=== PATIENT | female | born 1955 | race Caucasian/White ===

== ENCOUNTER 2016-11-18 11:54 | Observation (INO) | payer BC ==
[~2016-11-18] VITALS: Ht 160 cm; Wt 77.7 kg
[~2016-11-18 11:54] MED LIST: ASPCH81 PO; CLOP1TAB15 PO; METO50TA7 PO; PRAV20TA PO
[2016-11-18] MEDS ORDERED: RANITIDINE HCL 150 MG TAB PO STA (12:13)
[2016-11-18] MEDS ORDERED: SODIUM CHLORIDE 0.9% 1000ML 500 ML IV STA (12:13)
--- NOTE | 2016-11-18 12:17 | EMERGENCY ROOM VISIT NOTE ---
History Report prepared by Clyde: Linette Gabriel Under the Supervision of: Dr. Keegan De Luna M.D. First contact with patient: 12:08 Chief Complaint: CHEST PAIN Stated Complaint: CHEST PAINS Nursing Triage Summary: felt sick yesterday and did not eat much today and now has intermittant chest pain today c/o sob since chest pain started History of Present Illness The patient is a 61 year old female who presents to the Emergency Room with complaints of chest pain beginning yesterday. She states that she woke up feeling fine today and that she ate normally and went to work. About a half hour prior to arrival, she states that she felt a pain in her chest that she thought was heartburn, but it was not going away. She had just eaten some cheese as a snack. She reports that her pain did not radiate and rates it at a 6 /10. She also began to feel short of breath, but did not become diaphoretic. She reports that she has been exercising normally. The patient states that she had a heart attack 9 years ago and takes baby aspirin. She reports taking her baby aspirin today. Source of History: patient Onset: yesterday Position: chest Symptom Intensity: rated at a 6/10 Associated Symptoms: + headache, + SOB, No diaphoresis Review of Systems See HPI for pertinent positives & negatives. A total of 10 systems reviewed and were otherwise negative. Past Medical & Surgical Medical Problems: (1) Myocardial infarction Family History Cancer Social History Smoking Status: Never Smoker Marital Status: Current/Historical Medications Scheduled Aspirin (Aspirin Ec), 81 MG PO DAILY Metoprolol Succ (Toprol Xl) (Toprol-Xl), 50 MG PO BID Pravastatin (Pravachol ), 20 MG PO HS Allergies Coded Allergies: No Known Allergies (Verified Allergy, Unknown, 01/14/08) Physical Exam Vital Signs Date Time Temp Pulse Resp B/P (MAP) Pulse Ox O2 Delivery O2 Flow Rate FiO2 11/18/16 12:30 52 16 146/103 100 Room Air 11/18/16 12:06 62 11/18/16 12:03 100 Room Air 11/18/16 11:58 36.5 59 18 162/107 96 Physical Exam GENERAL: Patient is in no acute distress. HEENT: No acute trauma, normocephalic atraumatic, mucous membranes moist, no nasal congestion, no scleral icterus. NECK: No stridor, no adenopathy, no meningismus, trachea is midline. LUNGS: Clear to auscultation bilaterally, no wheeze, no rhonchi, breath sounds equal. HEART: Without murmurs gallops or rubs, regular rate and rhythm. ABDOMEN: Soft, nontender, bowel sounds positive, no hernias, no peritonitis. EXTREMITIES: No cyanosis or edema, full range of motion of all the joints without pain or difficulty, no signs for acute trauma. NEUROLOGIC: Oriented x 3, no acute motor or sensory deficits, no focal weakness. SKIN: No rash, no jaundice, no diaphoresis. Medical Decision & Procedures ER Provider Diagnostic Interpretation: X-ray results as stated below per interpretation by me and the radiologist: CHEST ONE VIEW PORTABLE HISTORY: Atypical CHEST PAIN COMPARISON: Chest 02/07/2008. FINDINGS: The lungs are clear. Cardiac silhouette is top normal in size. This remains unchanged. No pleural effusions. No pneumothorax. IMPRESSION: No significant change compared to the prior study. No acute process. Electronically signed by: Anton Man M.D. 11/18/2016 12:37 PM Dictated Date/Time: 11/18/2016 12:36 PM Laboratory Results 11/18/16 12:07 11/18/16 12:07 Test 11/18/16 12:07 11/18/16 12:19 Red Blood Count 4.94 M/uL (4.2-5.4) Mean Corpuscular Volume 89.9 fL (80-100) Mean Corpuscular Hemoglobin 30.6 pg (25-34) Mean Corpuscular Hemoglobin Concent 34.0 g/dl (32-36) RDW Standard Deviation 41.4 fL (36.4-46.3) RDW Coefficient of Variation 12.7 % (11.5-14.5) Mean Platelet Volume 11.6 fL (7.4-10.4) Prothrombin Time 10.4 SECONDS (9.0-12.0) Prothromb Time International Ratio 1.0 (0.9-1.1) Activated Partial Thromboplast Time 37.7 SECONDS (21.0-31.0) Partial Thromboplastin Ratio 1.5 Anion Gap 7.0 mmol/L (3-11) Est Creatinine Clear Calc Drug Dose 75.3 ml/min Estimated GFR () 95.0 Estimated GFR (Non- 81.9 BUN/Creatinine Ratio 16.4 (10-20) Calcium Level 9.7 mg/dl (8.5-10.1) Total Bilirubin 1.0 mg/dl (0.2-1) Aspartate Amino Transf (AST/SGOT) 20 U/L (15-37) Alanine Aminotransferase (ALT/SGPT) 31 U/L (12-78) Alkaline Phosphatase 81 U/L (45-117) Total Protein 7.8 gm/dl (6.4-8.2) Albumin 4.2 gm/dl (3.4-5.0) Globulin 3.6 gm/dl (2.5-4.0) Albumin/Globulin Ratio 1.2 (0.9-2) Lipase 166 U/L (73-393) Bedside Troponin I < 0.030 ng/ml (0-0.045) Laboratory results reviewed by me. Medications Administered Medications (Trade) Dose Ordered Sig/Alejandra Route Start Time Stop Time Status Last Admin Dose Admin Sodium Chloride 500 ml @ 999 mls/hr Q31M STAT IV 11/18/16 12:13 11/18/16 12:44 DC 11/18/16 12:30 999 MLS/HR Ranitidine HCl (zANTac TAB) 150 mg NOW STAT PO 11/18/16 12:13 11/18/16 12:15 DC 11/18/16 12:30 150 MG ECG Indication: chest pain Rate (beats per minute): 54 Rhythm: sinus bradycardia Findings: no acute ischemic change, no ectopy ED Course 1222: The patient was evaluated in room B11B. A complete history and physical exam was performed. 1213: Ordered Ranitidine HCl 150 mg PO, Sodium Chloride 500 ml @ 999 mls/hr IV. 1308: Discussed the patient's case. He believes that the patient should be brought in for chest pain. 1313: I updated the patient. Medical Decision The patient is a 61 year old female who presents to the ED with complaints of chest pain. Differential diagnoses considered include reflux, esophageal spasm , aortic dissection PE, CO, and angina. There is no leukocytosis or concerning anemia. No significant electrolyte abnormality, kidney failure or hepatitis. There is no pancreatitis. EKG shows sinus bradycardia, no acute ischemia. Cardiac enzyme testing times one is not consistent with acute cardiac injury. Chest film does not show pneumonia, pneumothorax or mediastinal widening. The patient received IV saline and oral Zantac. She had already taken her daily aspirin. She is currently pain-free. The patient presents with precordial chest pain and shortness of breath. She does have a cardiac history. I did speak with her sound tester, admission/ observation was felt warranted. I spoke to the patient and the lining caser. The on-call hospitalist was consulted. Medication Reconcilliation Current Medication List: was personally reviewed by me Blood Pressure Screening Patient's blood pressure: Elevated blood pressure Blood pressure disposition: Referred to PCP Consults Time Called: 1300 Consulting Physician: Dr. Frederick-Cardiology Returned Call: [phone] Discussed the patient's case. He believes that the patient should be brought in for chest pain. Impression Primary Impression: Precordial chest pain Scribe Attestation The scribe's documentation has been prepared under my direction and personally reviewed by me in its entirety. I confirm that the note above accurately reflects all work, treatment, procedures, and medical decision making performed by me. Departure Information Dispostion Being Evaluated By Hospitalist Referrals No Doctor, Assigned (PCP) Patient Instructions [facility]
[2016-11-18 12:28] LABS: HEMATOCRIT 44.4 % (37-47); MEAN CELL VOLUME 89.9 fL (80-100); MEAN CORPUSCULAR HEMOGLOBIN 30.6 pg (25-34); MEAN PLATELET VOLUME 11.6 fL (7.4-10.4); PLATELET COUNT 187 K/uL (130-400); RED BLOOD COUNT 4.94 M/uL (4.2-5.4); WHITE BLOOD COUNT 6.08 K/uL (4.8-10.8)
--- NOTE | 2016-11-18 12:38 | DIAGNOSTIC IMAGING REPORT ---
CHEST ONE VIEW PORTABLE HISTORY: Atypical CHEST PAIN COMPARISON: Chest 02/07/2008. FINDINGS: The lungs are clear. Cardiac silhouette is top normal in size. This remains unchanged. No pleural effusions. No pneumothorax. IMPRESSION: No significant change compared to the prior study. No acute process. Electronically signed by: Anton Man M.D. 11/18/2016 12:37 PM Dictated Date/Time: 11/18/2016 12:36 PM
[2016-11-18 12:39] LABS: PARTIAL THROMBOPLASTIN RATIO 1.5; PROTHROMBIN TIME (PATIENT) 10.4 SECONDS (9.0-12.0)
[2016-11-18 12:45] LABS: BUN/CREATININE RATIO 16.4 (10-20); CALCIUM 9.7 mg/dl (8.5-10.1); CREATININE 0.79 mg/dl (0.60-1.20); POTASSIUM 3.6 mmol/L (3.5-5.1)
[2016-11-18 12:48] LABS: ALB/GLOB RATIO 1.2 (0.9-2)
[2016-11-18] MEDS ORDERED: ASPI81TA28 PO (12:51)
[2016-11-18] MEDS ORDERED: ASPIRIN 81 MG CHEW PO SCH (13:24)
[2016-11-18] MEDS ORDERED: IV FLUIDS COMPLETED PRN (13:45)
[2016-11-18] MEDS ORDERED: NITROGLYCERIN 0.4 MG SL PER TAB CHARGE SL PRN (14:00)
[2016-11-18] MEDS ORDERED: ONDANSETRON INJ 2 MG/ML 2 ML VIAL IV PRN (14:00)
[2016-11-18] MEDS ORDERED: ENOXAPARIN 40 MG/0.4 ML SYR SC SCH ×2 (14:00→21:00)
[2016-11-18] MEDS ORDERED: ALUMINUM/MAGNESIUM/SIMETH (MAALOX MAX) 30 ML UDC PO PRN (14:00)
[2016-11-18] MEDS ORDERED: ACETAMINOPHEN 325 MG TAB PO PRN (14:00)
[2016-11-18] MEDS ORDERED: LPT/40 PO (14:21)
[2016-11-18] MEDS ORDERED: NTRGSL4 SL (14:21)
[2016-11-18] MEDS ORDERED: METO1TAB31 PO (14:21)
--- NOTE | 2016-11-18 15:03 | History and Physical ---
History & Physical Date & Time of Service: Nov 18, 2016 at 14:22 Chief Complaint: Chest Pains Primary Care Physician: Justina Gaytan D.O. History of Present Illness Source: patient, clinic records This is a 61 y/o female with PMH Of CAD s/p NSTEMI in 2007 with subsequent cath showing OM disease not amenable to PCI 2/2 small vessel diameter, HTN, HL, and other problems listed below who presents to the ED for chest pain. Pt follows with Dr. Ja Frederick for cardiology. On her last cardiology visit in 05/2016 , her beta gloria was reduced for marked sinus bradycardia (45 bpm on EKG). Patient reports staying home from work yesterday due to headache, mild nausea, sweating, malaise. HERNANDEZ resolved with ibuprofen and rest. Did not eat much yesterday, but this morning ate her usual breakfast without issues. Ate cheese as a snack around 11 am. Then while sitting at work around 11:30 am, patient developed substernal chest discomfort described as intense pressure and squeezing. Had associated SOB. No radiation of pain. Initially thought it was heartburn, however notes she felt similarly with prior TN. Denies relation to exertion. Pain lasted approximately 45 min- 1 hour. She was driven to ER by her boss. Received Zantac in ER, states pain was already subsiding at that time. Currently she is chest pain free. No sweating during the CP episode. Denies [place] with climbing 1-2 flights of stairs. Exercises daily on stationary bike. Has occasional reflux in the past associated with eating fried foods. Denies dizziness, syncope, abdominal pain, vomiting, diarrhea, calf pain, edema, rash, abnormal bleeding. Has been stressed 2/2 work recently. No recent heavy lifting. No recent travel. Past Medical/Surgical History Medical Problems: (1) CAD (coronary artery disease) Status: Chronic (2) Dyslipidemia Status: Chronic (3) HTN (hypertension) Status: Chronic (5) NSTEMI (non-ST elevated myocardial infarction) Permanent Comment: 2007 Status: Chronic Surgical Problems: (1) H/O cardiac catheterization Permanent Comment: 01/15/2008- OM disease not amenable to PIC due to small vessel diameter Status: Chronic (2) S/p repair of wrist fracture Status: Chronic (3) S/P tonsillectomy Status: Chronic Family History Cancer FH: CAD (coronary artery disease) FATHER Hypertension FATHER Social History Smoking Status: Former Smoker (quit in 1985, prior 16 pack years) Alcohol Use: occasionally (1 glass of wine few times per week, mostly on weekend days) Drug Use: none Marital Status: Housing status: lives with significant other Occupational Status: employed Immunizations History of Influenza Vaccine: No History of Tetanus Vaccine?: Unknown History of Pneumococcal: No History of Hepatitis B Vaccine: Unknown Multi-Drug Resistant Organisms History of MDRO: No Allergies Coded Allergies: No Known Allergies (Verified Allergy, Unknown, 01/14/08) Home Medications Scheduled Aspirin (Aspirin Ec), 81 MG PO DAILY Atorvastatin (Lipitor), 40 MG PO HS Metoprolol Succinate (Toprol Xl), 0.5 TAB PO DAILY Scheduled PRN Nitroglycerin (Nitrostat), 1 TAB SL UD PRN for Chest Pain Review of Systems Ten systems reviewed and negative except as noted in HPI. Physical Exam Vital Signs Date Time Temp Pulse Resp B/P (MAP) Pulse Ox O2 Delivery O2 Flow Rate FiO2 11/18/16 13:56 46 16 167/84 Room Air 11/18/16 12:30 52 16 146/103 100 Room Air 11/18/16 12:06 62 11/18/16 12:03 100 Room Air 11/18/16 11:58 36.5 59 18 162/107 96 General Appearance: WD/WN, no apparent distress, + pertinent finding (pleasant alert 61 y/o female, at bedside) Head: normocephalic, atraumatic Eyes: normal inspection, PERRL, EOMI, sclerae normal ENT: hearing grossly normal, pharynx normal Neck: supple, trachea midline Respiratory/Chest: chest non-tender, lungs clear, normal breath sounds, no respiratory distress, no accessory muscle use Cardiovascular: no murmur, + bradycardia (high 40s-50s, regular), + pertinent finding (radial pulse 2+) Abdomen/GI: normal bowel sounds, non tender, soft Extremities/Musculoskelatal: normal inspection, no calf tenderness, no pedal edema Neurologic/Psych: alert, normal mood/affect, oriented x 3 Skin: normal color, warm/dry, no rash (no rash on the chest) Diagnostics Laboratory Results Results Past 24 Hours Test 11/18/16 12:07 11/18/16 12:19 Range/Units White Blood Count 6.08 4.8-10.8 K/uL Red Blood Count 4.94 4.2-5.4 M/uL Hemoglobin 15.1 12.0-16.0 g/dL Hematocrit 44.4 37-47 % Mean Corpuscular Volume 89.9 80-100 fL Mean Corpuscular Hemoglobin 30.6 25-34 pg Mean Corpuscular Hemoglobin Concent 34.0 32-36 g/dl RDW Standard Deviation 41.4 36.4-46.3 fL RDW Coefficient of Variation 12.7 11.5-14.5 % Platelet Count 187 130-400 K/uL Mean Platelet Volume 11.6 7.4-10.4 fL Prothrombin Time 10.4 9.0-12.0 SECONDS Prothromb Time International Ratio 1.0 0.9-1.1 Activated Partial Thromboplast Time 37.7 21.0-31.0 SECONDS Partial Thromboplastin Ratio 1.5 Sodium Level 141 136-145 mmol/L Potassium Level 3.6 3.5-5.1 mmol/L Chloride Level 107 98-107 mmol/L Carbon Dioxide Level 27 21-32 mmol/L Anion Gap 7.0 3-11 mmol/L Blood Urea Nitrogen 13 7-18 mg/dl Creatinine 0.79 0.60-1.20 mg/dl Est Creatinine Clear Calc Drug Dose 75.3 ml/min Estimated GFR () 95.0 Estimated GFR (Non- 81.9 BUN/Creatinine Ratio 16.4 10-20 Random Glucose 93 70-99 mg/dl Calcium Level 9.7 8.5-10.1 mg/dl Total Bilirubin 1.0 0.2-1 mg/dl Aspartate Amino Transf (AST/SGOT) 20 15-37 U/L Alanine Aminotransferase (ALT/SGPT) 31 12-78 U/L Alkaline Phosphatase 81 45-117 U/L Total Protein 7.8 6.4-8.2 gm/dl Albumin 4.2 3.4-5.0 gm/dl Globulin 3.6 2.5-4.0 gm/dl Albumin/Globulin Ratio 1.2 0.9-2 Lipase 166 73-393 U/L Bedside Troponin I < 0.030 0-0.045 ng/ml Diagnostic Radiology CHEST ONE VIEW PORTABLE HISTORY: Atypical CHEST PAIN COMPARISON: Chest 02/07/2008. FINDINGS: The lungs are clear. Cardiac silhouette is top normal in size. This remains unchanged. No pleural effusions. No pneumothorax. IMPRESSION: No significant change compared to the prior study. No acute process. EKG sinus bradycardia, 54 bpm, nonspecific T wave flattening in III, no ST changes Impression Assessment and Plan CHEST PAIN R/o ACS; known CAD, hx NSTEMI in 2007 s/p cath showing OM disease not amenable to PCI due to small vessel diameter Initial POC troponin negative EKG- sinus bradycardia, 54 bpm, nonspecific T wave flattening in III, no ST changes CXR-no acute findings Aspirin 324 mg now Continue daily ASA 81 mg, statin Defer to cardiology on whether to continue her beta gloria in setting of bradycardia Trend serial cardiac enzymes Check echo Repeat EKG in am Consult cardiology NPO after midnight for possible stress test SINUS BRADYCARDIA HR high 40s-50s in ER Currently asymptomatic Beta gloria reduced by cardiology in May for HR 45 Currently taking metoprolol succinate 0.5 mg daily- will defer to cardiology on whether to continue HYPERTENSION BP mildly elevated Defer to cardiology for continuing her BB DYSLIPIDEMIA Continue statin DVT PROPHYLAXIS Lovenox SQ FULL CODE DISPOSITION Telemetry Follows with Dr. Blaise Gayatn for primary care Patient seen in collaboration with Dr. Tiwari. Please see his addendum. Attending Note: Patient is a 61 yr female with h/o CAD s/p NSTEMI in 2007 with subsequent cath showing OM disease not amenable to PCI presents with history of sudden onset of severe epigastric/substernal chest pain associated with some SOB which resolved after about 45 minutes. EKG did not show any signs of ischemia. Negative cardiac enzymes. currently chest pain free. Physical Exam: Vitals signs as noted above General Appearance:Moderately built and nourished, no apparent distress Head: normocephalic, Atraumatic Eyes: normal inspection, EOMI, PERRL Neck: supple, Trachea midline Respiratory/Chest: Normal breath sounds, CTA Cardiovascular: S1, S2, No murmur Abdomen/GI:Soft, Non tender, Bowel sounds present Extremities/Musculoskelatal:normal inspection, no edema Neurologic/Psych:AAOX3, grossly no focal neurological deficits Skin:normal color,warm Assessment and Plan: Atypical chest pain: r/o ACS H/O CAD EKG: negative for ischemic changes Trend cardiac enzymes Stress test in AM Appreciate Cardiology Input Sinus Bradycardia: Hold metoprolol for now I personally reviewed the record. Patient is interviewed and examined at bedside. Patient's care is coordinated with Tammie Landry PA-C. Please refer to the documentation above for details of patient's presentation and for discussion of other issues. VTE Prophylaxis VTE Risk Assessment Done? Y/N: Yes Risk Level: Moderate
[2016-11-18 15:21] VITALS: O2SAT 96
[2016-11-18] MEDS ORDERED: CONVERT TO SALINE LOCK ONE (15:30)
[2016-11-18 15:55] VITALS: BP 151/91; PULSE 70; TEMP 36.7; O2SAT 97
--- NOTE | 2016-11-18 15:55 | CARDIOLOGY CONSULTATION ---
DATE OF CONSULTATION: 11/18/2016 DATE OF CONSULTATION: 11/18/2016 CONSULTATION FOR: Shawnee lindo. REASON FOR CONSULTATION: Chest pain. HISTORY OF PRESENT ILLNESS: This is a 61-year-old female who usually follows with Dr. Frederick. In 2007, she presented with a non-STEMI and underwent a subsequent cardiac catheterization which showed disease in the OM that was not amenable to PCI due to the small size of the vessel. She has been treated medically following that event and has done very well. She had a stress test performed in 2013 that was negative for inducible ischemia. She has had no recent activity related chest pain. Yesterday, she did not feel well. She had an upset stomach with nausea and just did not feel herself. Today, she got up and went to work. She then began to have chest discomfort which she describes as a squeezing sensation that was severe in nature. She came to the Emergency Department where now she is admitted to an observation protocol. Her first set of cardiac markers are negative. Her EKG shows no acute changes that would suggest ischemia. She is currently pain free and eating lunch. ALLERGIES: No known medical allergies. PAST MEDICAL HISTORY: As described above. She has a remote history of coronary artery disease and previous AR. She is also treated for hypertension and dyslipidemia. It should be noted that with her last visit with Dr. Frederick her metoprolol was decreased to 12.5 mg daily due to bradycardia. SOCIAL HISTORY: She is a nonsmoker. FAMILY MEDICAL HISTORY: Noncontributory. REVIEW OF SYSTEMS: A 10-point review of systems is negative except for the history of chief complaint. PHYSICAL EXAMINATION: GENERAL: She is alert and oriented. VITAL SIGNS: Blood pressure is 140/80, pulse is regular at 46 beats per minute. She is afebrile. HEAD, EYES, EARS, NOSE, AND THROAT: She is normocephalic. Pupils are equal and reactive to light. Extraocular muscles are intact bilaterally. NECK: The neck veins are flat. Carotids have good upstrokes bilaterally without bruits. Thyroid is nonpalpable. RESPIRATORY: Breath sounds equal bilaterally and clear to auscultation. CARDIOVASCULAR: Heart has a regular rhythm. Normal S1, S2. No S3, S4. No cardiac rubs or murmurs. GASTROINTESTINAL: Abdomen is soft, nontender without organomegaly. EXTREMITIES: Free of edema, digit clubbing, or cyanosis. NEUROLOGIC: Grossly intact. SKIN: Warm to touch. LYMPH NODES: Negative to palpation. LABORATORY DATA: Per the history of chief complaint. IMPRESSION: 1. Atypical chest pain. 2. Previous history of coronary artery disease. RECOMMENDATIONS: At this point, she should be admitted to an observation protocol. If her cardiac markers stay negative and she has no additional chest pain then she should undergo an exercise stress test in the morning.
--- NOTE | 2016-11-18 15:56 | ECHOCARDIOGRAM REPORT ---
*NOTICE TO RECEIVING CONSTITUTION PARTY AGENCY This information is strictly Confidential and protected under [place] law. [place] law prohibits you from making any further disclosure of this information unless further disclosure is expressly permitted by the written consent of the person to whom it pertains or is authorized by law. A general authorization for the release of medical or other information is not sufficient for this purpose. Hospital accepts no responsibility if the information is made available to any other person, INCLUDING THE PATIENT. Interpretation Summary * Name: JANICE LLOYD Study Date: 11/18/2016 02:37 PM BP: 167/84 mmHg * Patient Location: C.EDB HR: 49 * : 1955 (M/d/yyyy) Gender: Female Height: 63 in * Age: 61 yrs Ethnicity: CA Weight: 169 lb * Ordering Physician: Tammie Landry * Referring Physician: Self, Referred * Performed By: Sylvie Isaacs RCS * * Reason For Study: CHEST PAIN * BSA: 1.8 m2 * -- Conclusions -- * The left ventricle is normal in size. * There is moderate concentric left ventricular hypertrophy. * Grade I diastolic dysfunction, (abnormal relaxation pattern). * The left ventricular wall motion is normal at rest. * Normal right heart. * No significant valvular pathology. Procedure Details * A complete two-dimensional transthoracic echocardiogram was performed (2D, M-mode, Doppler and color flow Doppler). Left Ventricle * The left ventricle is normal in size. * There is moderate concentric left ventricular hypertrophy. * Left ventricular systolic function is normal. * Ejection Fraction = 55-60%. * The left ventricular wall motion is normal at rest. Right Ventricle * The right ventricle is normal size. * The right ventricular systolic function is normal. Atria * The left atrium is borderline dilated. * Right atrial size is normal. * The interatrial septum is intact with no evidence for an atrial septal defect. Mitral Valve * The mitral valve anatomy is normal. * Significant mitral regurgitation is absent. Tricuspid Valve * The tricuspid valve anatomy is normal. * Significant tricuspid regurgitation is absent. Aortic Valve * The aortic valve is normal in structure and function. Great Vessels * The aortic root and proximal ascending aorta are normal sized. Pericardium/Pleural * There is no pericardial effusion. Left Ventricular Diastolic Function * Grade I diastolic dysfunction, (abnormal relaxation pattern). MMode 2D Measurements and Calculations IVSd 1.6 cm IVSs 1.7 cm LVIDd 4.2 cm LVIDs 3.1 cm LVPWd 1.2 cm LVPWs 1.1 cm IVS/LVPW 1.4 FS 27.5 % EDV(Teich) 79.7 ml ESV(Teich) 36.8 ml EF(Teich) 53.9 % EDV(cubed) 75.4 ml ESV(cubed) 28.7 ml EF(cubed) 62.0 % % IVS thick 7.7 % % LVPW thick -10.20 % LV mass(C)d 225.2 grams LV mass(C)dI 125.1 grams/m\S\2 LV mass(C)s 143.9 grams LV mass(C)sI 79.9 grams/m\S\2 SV(Teich) 42.9 ml SI(Teich) 23.8 ml/m\S\2 SV(cubed) 46.7 ml SI(cubed) 25.9 ml/m\S\2 Ao root diam 3.2 cm Ao root area 8.2 cm\S\2 ACS 1.8 cm LA dimension 3.9 cm LA/Ao 1.2 Doppler Measurements and Calculations MV E max dominique 70.1 cm/sec MV A max dominique 90.6 cm/sec MV E/A 0.77 MV P1/2t max dominique 74.2 cm/sec MV P1/2t 104.1 msec MVA(P1/2t) 2.1 cm\S\2 MV dec slope 208.7 cm/sec\S\2 MV dec time 0.39 sec Ao V2 max 137.7 cm/sec Ao max PG 7.6 mmHg Ao max PG (full) 4.0 mmHg LV V1 max PG 3.6 mmHg LV V1 max 94.9 cm/sec PA V2 max 69.0 cm/sec PA max PG 1.9 mmHg TR max dominique 161.3 cm/sec
[2016-11-18 18:23] VITALS: BP 151/91; PULSE 70; TEMP 36.7; Ht 160 cm; Wt 77.7 kg
[2016-11-18 19:44] VITALS: BP 148/90; PULSE 102; PULSE 49; TEMP 37; O2SAT 96
[2016-11-18] MEDS ORDERED: ATORVASTATIN 40 MG TAB PO SCH (21:00)
[2016-11-18 23:35] VITALS: BP 135/86; PULSE 54; TEMP 36.6; O2SAT 96
[2016-11-19 04:09] VITALS: BP 154/99; PULSE 68; TEMP 36.7; O2SAT 95
[2016-11-19 07:33] VITALS: BP 130/89; PULSE 77; TEMP 36.5; O2SAT 96
[2016-11-19 08:29] LABS: HEMATOCRIT 39.8 % (37-47); MEAN CELL VOLUME 89.2 fL (80-100); MEAN CORPUSCULAR HEMOGLOBIN 30.3 pg (25-34); MEAN CORPUSCULAR HGB CONC 33.9 g/dl (32-36); MEAN PLATELET VOLUME 11.6 fL (7.4-10.4); PLATELET COUNT 160 K/uL (130-400); RED BLOOD COUNT 4.46 M/uL (4.2-5.4); WHITE BLOOD COUNT 5.05 K/uL (4.8-10.8)
[2016-11-19 08:57] LABS: BUN/CREATININE RATIO 20.7 (10-20); CALCIUM 9.1 mg/dl (8.5-10.1); CREATININE 0.69 mg/dl (0.60-1.20); MAGNESIUM 2.5 mg/dl (1.8-2.4); POTASSIUM 3.8 mmol/L (3.5-5.1)
[2016-11-19] MEDS ORDERED: ASPIRIN 81 MG ECTAB PO SCH (09:00)
--- NOTE | 2016-11-19 09:10 | Progress Note ---
Internal Med Progress Note Date of Service: Nov 19, 2016. Provider Documentation: SUBJECTIVE: Seen and examined at bedside Reports some epigastric discomfort overnight which improved with Maalox Denies chest pain, SOB, dizziness this morning Planned for stress test today OBJECTIVE: Vital Signs-as noted below Physical Exam: General Appearance:Moderately built and nourished, no apparent distress Head: normocephalic, Atraumatic Eyes: normal inspection, EOMI, PERRL Neck: supple, Trachea midline Respiratory/Chest: Normal breath sounds, CTA Cardiovascular: S1, S2, No murmur Abdomen/GI:Soft, Non tender, Bowel sounds present Extremities/Musculoskelatal:normal inspection, no edema Neurologic/Psych:grossly no focal neurological deficits Skin: normal color, warm Lab data as noted below. ASSESSMENT & PLAN: Atypical Chest Pain: R/o ACS; known CAD, hx NSTEMI in 2007 s/p cath showing OM disease not amenable to PCI due to small vessel diameter Negative cardiac enzymes EKG/ECHO: no signs of ischemia, Normal LV wall motion Continue ASA, Lipitor Stress test: Normal CXR-no acute findings Appreciate Cardiology Input Will stop the metoprolol secondary to bradycardia. discussed with cardiology Sinus Bradycardia: HR high 40s-50s in ER Asymptomatic Bradycardia resolved Will stop the Metoprolol per cardiology recommendations HYPERTENSION stable DYSLIPIDEMIA Continue statin DVT Px Lovenox SQ FULL CODE DISPOSITION Telemetry Follow up with for primary care on 11/25/16 at 1:15pm Your Metoprolol was discontinued secondary to bradycardia Seek immediate medical attention if your symptoms reoccur or worsen PROCEDURES: Stress test: * STRESS STUDY: Normal exercise stress echocardiogram. No echocardiographic or ECG evidence of myocardial ischemia having achieved heart rate adequate for diagnostic purposes. ECHO: * The left ventricle is normal in size. * There is moderate concentric left ventricular hypertrophy. * Grade I diastolic dysfunction, (abnormal relaxation pattern). * The left ventricular wall motion is normal at rest. * Normal right heart. * No significant valvular pathology. Vital Signs: Date Time Temp Pulse Resp B/P (MAP) Pulse Ox O2 Delivery O2 Flow Rate FiO2 11/19/16 13:59 36.9 74 16 95 Room Air 11/19/16 12:01 36.9 74 16 153/97 (115) 95 Room Air 11/19/16 12:00 Room Air 11/19/16 08:00 Room Air 11/19/16 07:33 36.5 77 16 130/89 (103) 96 Room Air 11/19/16 04:09 36.7 68 18 154/99 (117) 95 Room Air 11/19/16 04:00 Room Air 11/19/16 00:00 Room Air 11/18/16 23:35 36.6 54 18 135/86 (102) 96 Room Air 11/18/16 20:00 Room Air 11/18/16 19:44 37.0 49 18 148/90 (109) 96 11/18/16 18:23 36.7 70 16 151/91 Room Air 11/18/16 15:55 36.7 70 16 151/91 (111) 97 Room Air 11/18/16 15:21 58 17 142/78 96 11/18/16 15:01 142/78 11/18/16 15:00 58 17 96 11/18/16 14:31 159/91 11/18/16 14:30 48 13 97 Lab Results: Results Past 24 Hours Test 11/18/16 18:20 11/19/16 00:14 11/19/16 07:54 Range/Units Total Creatine Kinase 62 61 26-192 U/L Creatine Kinase MB < 0.5 < 0.5 0.5-3.6 ng/ml Creatine Kinase MB Ratio 0-3.0 Troponin I < 0.015 < 0.015 0-0.045 ng/ml White Blood Count 5.05 4.8-10.8 K/uL Red Blood Count 4.46 4.2-5.4 M/uL Hemoglobin 13.5 12.0-16.0 g/dL Hematocrit 39.8 37-47 % Mean Corpuscular Volume 89.2 80-100 fL Mean Corpuscular Hemoglobin 30.3 25-34 pg Mean Corpuscular Hemoglobin Concent 33.9 32-36 g/dl RDW Standard Deviation 40.1 36.4-46.3 fL RDW Coefficient of Variation 12.5 11.5-14.5 % Platelet Count 160 130-400 K/uL Mean Platelet Volume 11.6 7.4-10.4 fL Sodium Level 142 136-145 mmol/L Potassium Level 3.8 3.5-5.1 mmol/L Chloride Level 108 98-107 mmol/L Carbon Dioxide Level 30 21-32 mmol/L Anion Gap 4.0 3-11 mmol/L Blood Urea Nitrogen 14 7-18 mg/dl Creatinine 0.69 0.60-1.20 mg/dl Est Creatinine Clear Calc Drug Dose 86.6 ml/min Estimated GFR () 110.4 Estimated GFR (Non- 95.3 BUN/Creatinine Ratio 20.7 10-20 Random Glucose 87 70-99 mg/dl Calcium Level 9.1 8.5-10.1 mg/dl Magnesium Level 2.5 1.8-2.4 mg/dl
[2016-11-19 12:01] VITALS: BP 153/97; PULSE 74; TEMP 36.9; O2SAT 95
--- NOTE | 2016-11-19 12:51 | EXERCISE STRESS ECHO ---
*NOTICE TO RECEIVING REPUBLICAN AGENCY This information is strictly Confidential and protected under [place] law. [place] law prohibits you from making any further disclosure of this information unless further disclosure is expressly permitted by the written consent of the person to whom it pertains or is authorized by law. A general authorization for the release of medical or other information is not sufficient for this purpose. Hospital accepts no responsibility if the information is made available to any other person, INCLUDING THE PATIENT. Interpretation Summary * Name: JANICE LLOYD Study Date: 11/19/2016 11:16 AM BP: 129/101 mmHg * Patient Location: [facility] HR: 64 * : 1955 (M/d/yyyy) Gender: Female Height: 63 in * Age: 61 yrs Ethnicity: [place] Weight: 169 lb * Ordering Physician: [place] Rain * Referring Physician: Self, Referred * Performed By: Goran Huitron RCS * * Reason For Study: Chest Pain * BSA: 1.8 m2 * STRESS STUDY: Normal exercise stress echocardiogram. No echocardiographic or ECG evidence of myocardial ischemia having achieved heart rate adequate for diagnostic purposes. * -- Conclusions -- * STRESS STUDY: Normal exercise stress echocardiogram. No echocardiographic or ECG evidence of myocardial ischemia having achieved heart rate adequate for diagnostic purposes. Procedure Details * ECHOEX, CPT #[id number] Left Ventricle * Resting wall motion: Normal. Stress wall motion: Appropriate increase in Left ventricular systolic function and decrease in cavity size. No stress induced segmental wall motion abnormalities. Stress Parameters * The stress ECG response was normal * Stress ECG: No ST changes. No arrhythmias. * The stress portion of this study was personally supervised by the undersigned interpreting physician. * Rest heart rate was '64' BPM. * Rest blood pressure was '129/101' * Maximum heart rate achieved was 148 bpm. * Maximum heart rate was 91 % of maximum age-predicted heart rate. * Maximum blood pressure was '157/81' * Total exercise time was '7:00' * Maximum exercise MET level achieved was '8.5' METS * Maximum treadmill speed was '3.4' miles per hour. * Maximum treadmill elevation was '14'% grade. * Exercise was terminated due to 'target heart rate achieved' * Normal blood pressure response to exercise.
[2016-11-19 13:59] VITALS: BP 153/97; PULSE 74; TEMP 36.9; O2SAT 95
--- NOTE | 2016-11-19 14:23 | Discharge Summary ---
Discharge Summary Date of Service Nov 19, 2016. Discharge Summary Admission Date: Nov 18, 2016 at 13:24 Discharge Date: Nov 19, 2016 Discharge Disposition: Home Principal Diagnosis: Atypical Chest Pain Procedures: Stress test: * STRESS STUDY: Normal exercise stress echocardiogram. No echocardiographic or ECG evidence of myocardial ischemia having achieved heart rate adequate for diagnostic purposes. ECHO: * The left ventricle is normal in size. * There is moderate concentric left ventricular hypertrophy. * Grade I diastolic dysfunction, (abnormal relaxation pattern). * The left ventricular wall motion is normal at rest. * Normal right heart. * No significant valvular pathology. Consultations: Cardiology Pending Studies/Follow-Up: Follow up with for primary care on 11/25/16 at 1:15pm Your Metoprolol was discontinued secondary to bradycardia Seek immediate medical attention if your symptoms reoccur or worsen Medication Reconciliation Continued Medications: Aspirin (Aspirin Ec) 81 Mg Tab 81 MG PO DAILY Atorvastatin (Lipitor) 40 Mg Tab 40 MG PO HS, TAB Nitroglycerin (Nitrostat) 0.4 Mg/1 Tab Subl 1 TAB SL UD PRN for Chest Pain Discontinued Medications: Metoprolol Succinate (Toprol Xl) 25 Mg Tab 0.5 TAB PO DAILY for 30 Days, #15 TAB 5 Refills Admission Information HPI (per Admitting provider): This is a 61 y/o female with PMH Of CAD s/p NSTEMI in 2007 with subsequent cath showing OM disease not amenable to PCI 2/2 small vessel diameter, HTN, HL, and other problems listed below who presents to the ED for chest pain. Pt follows with Dr. Ja Frederick for cardiology. On her last cardiology visit in 05/2016 , her beta gloria was reduced for marked sinus bradycardia (45 bpm on EKG). Patient reports staying home from work yesterday due to headache, mild nausea, sweating, malaise. HERNANDEZ resolved with ibuprofen and rest. Did not eat much yesterday, but this morning ate her usual breakfast without issues. Ate cheese as a snack around 11 am. Then while sitting at work around 11:30 am, patient developed substernal chest discomfort described as intense pressure and squeezing. Had associated SOB. No radiation of pain. Initially thought it was heartburn, however notes she felt similarly with prior RI. Denies relation to exertion. Pain lasted approximately 45 min- 1 hour. She was driven to ER by her boss. Received Zantac in ER, states pain was already subsiding at that time. Currently she is chest pain free. No sweating during the CP episode. Denies [place] with climbing 1-2 flights of stairs. Exercises daily on stationary bike. Has occasional reflux in the past associated with eating fried foods. Denies dizziness, syncope, abdominal pain, vomiting, diarrhea, calf pain, edema, rash, abnormal bleeding. Has been stressed 2/2 work recently. No recent heavy lifting. No recent travel. Physical Exam (per Admitting): General Appearance: WD/WN, no apparent distress, + pertinent finding ( pleasant alert 61 y/o female, at bedside) Head: normocephalic, atraumatic Eyes: normal inspection, PERRL, EOMI, sclerae normal ENT: hearing grossly normal, pharynx normal Neck: supple, trachea midline Respiratory/Chest: chest non-tender, lungs clear, normal breath sounds, no respiratory distress, no accessory muscle use Cardiovascular: no murmur, + bradycardia (high 40s-50s, regular), + pertinent finding (radial pulse 2+) Abdomen/GI: normal bowel sounds, non tender, soft Extremities/Musculoskelatal: normal inspection, no calf tenderness, no pedal edema Neurologic/Psych: alert, normal mood/affect, oriented x 3 Skin: normal color, warm/dry, no rash (no rash on the chest) Hospital Course Atypical Chest Pain: R/o ACS; known CAD, hx NSTEMI in 2007 s/p cath showing OM disease not amenable to PCI due to small vessel diameter Negative cardiac enzymes EKG/ECHO: no signs of ischemia, Normal LV wall motion Continue ASA, Lipitor Stress test: Normal CXR-no acute findings Appreciate Cardiology Input Will stop the metoprolol secondary to bradycardia. discussed with cardiology Sinus Bradycardia: HR high 40s-50s in ER Asymptomatic Bradycardia resolved Will stop the Metoprolol per cardiology recommendations HYPERTENSION stable DYSLIPIDEMIA Continue statin DVT Px Lovenox SQ FULL CODE DISPOSITION Telemetry Follow up with for primary care on 11/25/16 at 1:15pm Your Metoprolol was discontinued secondary to bradycardia Seek immediate medical attention if your symptoms reoccur or worsen PROCEDURES: Stress test: * STRESS STUDY: Normal exercise stress echocardiogram. No echocardiographic or ECG evidence of myocardial ischemia having achieved heart rate adequate for diagnostic purposes. ECHO: * The left ventricle is normal in size. * There is moderate concentric left ventricular hypertrophy. * Grade I diastolic dysfunction, (abnormal relaxation pattern). * The left ventricular wall motion is normal at rest. * Normal right heart. * No significant valvular pathology. Total time spent on discharge = This includes examination of the patient, discharge planning, medication reconciliation, and communication with other providers. Discharge Instructions Discharge Instructions Date of Service Nov 19, 2016. Admission Reason for Admission: Precordial Chest Pain Discharge Discharge Diagnosis / Problem: Atypical Chest Pain Discharge Goals Goal(s): Decrease discomfort, Improve function Activity Recommendations Activity Limitations: resume your previous activity Exercise/Sports Limitations: as tolerated . Instructions / Follow-Up Instructions / Follow-Up Follow up with for primary care on 11/25/16 at 1:15pm Your Metoprolol was discontinued secondary to bradycardia Seek immediate medical attention if your symptoms reoccur or worsen Current Hospital Diet Patient's current hospital diet: AHA Diet (Heart Healthy) Discharge Diet Recommended Diet: AHA Diet (Heart Healthy) Pending Studies Studies pending at discharge: no Medical Emergencies . Who to Call and When: Medical Emergencies: If at any time you feel your situation is an emergency, please call 911 immediately. . Non-Emergent Contact Non-Emergency issues call your: Primary Care Provider, Director Of Recruitment And Admissions Call Non-Emergent contact if: you have a fever, your pain is not controlled, your pain is worsening, your pain is unusual for you, your pain is concerning you, you have any medication questions . . "Provider Documentation" section prepared by Wolfgang Tiwari. . VTE Core Measure Inpt VTE Proph given/why not?: Enoxaparin (Lovenox)SQ
== END 2016-11-19 15:29 | disposition home or self-care (01) ==
LOC: C.EDB 11:55 → C.MED 13:24 → ENRESERV 14:49
PROVIDERS: ADMIT Internal Medicine; ATTEND Internal Medicine
DX: R07.89 Other chest pain (principal); I10 Essential (primary) hypertension; I25.10 Atherosclerotic heart disease of native coronary artery without angina pectoris; E78.5 Hyperlipidemia, unspecified; Z79.899 Other long term (current) drug therapy; I25.2 Old myocardial infarction; Z82.49 Family history of ischemic heart disease and other diseases of the circulatory system; Z87.891 Personal history of nicotine dependence